=== PATIENT | male | born 1935 | race Caucasian/White ===

== ENCOUNTER → 2016-11-13 | Outpatient (CLI) | payer OTHER | END | disposition home or self-care (01) | LOC: RESP 11:34 | PROVIDERS: ATTEND Nurse Practitioner Family | DX: I49.9 Cardiac arrhythmia, unspecified (principal) ==

== ENCOUNTER 2016-12-19 08:48 | Outpatient (CLI) | payer OTHER ==
[2016-12-19] MEDS ORDERED: DEX 5% W/NACL 0.9% 1000ML 1,000 ML IVS ONE (08:53)
--- NOTE | 2016-12-19 09:37 | RAD ---
Procedure: XR ABDOMEN 1 VIEW (KUB) Exam Date: 12/19/2016 Ordering Provider: Lisa Logan Clinical Indication: Abdominal Pain Comparison: None Findings: Nonobstructive bowel gas pattern. Large stool burden in the right colon. There is no pneumoperitoneum. There are no suspicious calcifications. Pelvic phleboliths. There is no acute skeletal abnormality. Right hip arthroplasty. Degenerative changes in the left hip. Impression: 1. No acute findings. 2. Large stool burden in the right colon. Electronically signed by: Sushant Dinh MD 12/19/2016 9:37 AM CDT
[2016-12-19 10:39] VITALS: BP 135/79; TEMP 98; O2SAT 97
== END 2016-12-19 13:20 | disposition home or self-care (01) ==
LOC: AMB 08:48 → TXRM 08:48 → AMB 13:20 → EDSTATUS 16:31
PROVIDERS: ATTEND Nurse Practitioner Family
DX: E86.0 Dehydration (principal)
CPT/HCPCS: 36415; 74000; 81001; 83880; 85025; J7799

== ENCOUNTER → 2017-01-05 | Outpatient (CLI) | payer OTHER | END | disposition home or self-care (01) | LOC: GRH 12:58 | PROVIDERS: ATTEND Family Medicine | DX: I10 Essential (primary) hypertension (principal) ==

== ENCOUNTER 2017-01-11 13:02 | Inpatient (IN) | payer OTHER ==
[2017-01-11] MEDS ORDERED: KCL 20MEQ/0.45% NS 1,000 ML IVS PRN (13:14)
[2017-01-11] MEDS ORDERED: ONDANSETRON INJ 4 MG/2 ML VIAL IV PRN (13:14)
[2017-01-11] MEDS ORDERED: HYDROmorphone HCL INJ 2 MG/ML VIAL IV ONE (13:15)
[2017-01-11] MEDS ORDERED: PROMETHAZINE HCL INJ 25 MG/ML VIAL ONE (13:20)
[2017-01-11] MEDS ORDERED: SODIUM CHLORIDE 0.9% 50ML 50 ML ONE (13:21)
[2017-01-11] MEDS ORDERED: SODIUM CHLORIDE 0.9% 1000ML 1,000 ML ONE (13:53)
[2017-01-11] MEDS ORDERED: SODIUM CHLORIDE 0.9% 1000ML 1,000 ML IVS PRN (13:53)
[2017-01-11] MEDS ORDERED: MAGNESIUM HYDROXIDE 30 ML UD PO PRN (13:54)
[2017-01-11] MEDS ORDERED: ACETAMINOPHEN 325 MG TAB PO PRN (13:54)
[2017-01-11] MEDS ORDERED: SODIUM CHLORIDE 0.9% (FLUSH) 10 ML SYG IV PRN (13:54)
[2017-01-11] MEDS ORDERED: TEMAZEPAM 15 MG CAP PO PRN (13:54)
[2017-01-11] MEDS ORDERED: MORPHINE SULFATE INJ 10 MG/ML VIAL IV PRN (13:59)
[2017-01-11] MEDS ORDERED: HYDROmorphone HCL INJ 2 MG/ML VIAL IV PRN (14:04)
[2017-01-11] MEDS: PROMETHAZINE HCL INJ 12.5 MG in SODIUM CHLORIDE 0.9% 50ML 50 ML IVPB PRN (14:30)
[2017-01-11] MEDS: IV SET AND CAP CHANGE INJ INJ SCH (15:36)
--- NOTE | 2017-01-11 15:57 | HP ---
SUPERVISING PHYSICIAN: Aayush Valenzuela M.D. 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 He started having some bronchitis type symptoms in June of 2016 and in July of 2016. He had a CT scan which saw that he had positive findings for lymphoma after which he was sent to [facility]. He was diagnosed with non-Hodgkin's lymphoma and started on chemotherapy regimen , and was unable to complete the second round secondary to complications of the chemotherapy and the fact that his cancer was not responding to treatment as expected. He was placed on hospice care after further discussion with the family and physicians within the last week and at that point went home under hospice care, [facility]. I was contacted today by hospice nurse reporting that the patient was unable to hold any of his oral pain medicines in secondary to ongoing nausea and vomiting. It is requested that we place the patient in inpatient hospice in order to better control his symptoms and to provide better comfort care measures. The patient was directly admitted to inpatient hospice for care and comfort measures. PAST MEDICAL HISTORY: 1. Non-Hodgkin's lymphoma diagnosed within the last year. 2. Hypertension. 3. Benign prostatic hypertrophy. PAST SURGICAL HISTORY: 1. Lumbar surgeries. 2. Port-A-Cath placement on 02/26/16. 3. Hip replacement on the right. HOME MEDICATIONS: Please review the electronic medical records for an updated list of home medications. ALLERGIES: NO KNOWN DRUG ALLERGIES. FAMILY HISTORY: Unremarkable. 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 He is and lives in [place]. He commutes to several areas between [place] and [place]. He denies ever smoking. He does note that he drinks 1 glass of wine a week. Denies any illicit drug use. REVIEW OF SYSTEMS: CONSTITUTIONAL: Notes significant fatigue, tiredness and drowsiness with decreased appetite secondary to post chemotherapy, but denies any fever or chills. HEENT: Denies any blurred vision, double vision, sore throat, nasal congestion. RESPIRATORY: Notes that he has had some shortness of breath on and off with some sputum production. CARDIOVASCULAR: Reports that he does have a degree of congestive heart failure with bilateral lower extremity swelling as well as some now upper extremity swelling, but denies any chest pains, angina, palpitations or irregular heart rate. GASTROINTESTINAL: Denies any diarrhea currently but notes that he has had diarrhea in the past with episodes of diarrhea then constipation, and as per History of Present Illness, severe nausea with any oral intake. Unable to hold in oral medications. GENITOURINARY: Denies any urinary symptoms, hematuria, dysuria, but does have a past history of benign prostatic hypertrophy. NEUROLOGIC: Denies any syncopal episodes, neurological deficits, weaknesses. PHYSICAL EXAMINATION: VITAL SIGNS: Pending at time of admission. Admission weight 86.2 kg. GENERAL: The patient appears quite ill and frail, and somewhat dehydrated and in obvious pain at time of admission. HEENT: Tympanic membranes are clear bilaterally. Oropharynx is pink. Mucosal membranes are dry. There are no lesions. NECK: Supple, non-tender. Full range of motion without any jugular venous distention. CHEST: Lungs are clear to auscultation bilaterally without any rhonchi, wheezing or rales, just slightly diminished towards the bases. CARDIOVASCULAR: Regular rate and rhythm without appreciable murmurs, gallops, or rubs. EXTREMITIES: He has 1+ edema to both upper and lower extremities. Moves all extremities ad chelsie. There is no clubbing or cyanosis noted. NEUROLOGIC: He is alert and oriented times three with cranial nerves II-XII being grossly intact. Facial features are symmetrical. Extraocular movements are within normal limits. INTEGUMENT: Skin is warm and dry with good turgor. There is a Port-A-Cath noted in place on the chest wall right upper region with no obvious infection. There are no other lesions or rashes noted. LABORATORY: No laboratory specimens were collected. RADIOLOGY: No radiological studies were completed. ASSESSMENT: 1. Recent diagnosis of non-Hodgkin's lymphoma stage IV now on hospice care having failed to respond to chemotherapy. 2. Intractable pain secondary to number 1. 3. Nausea and vomiting preventing the patient from having decent oral intake and unable to take his oral medications for pain secondary to number 1. 4. Benign prostatic hypertrophy. 5. Hypertension. PLAN: The patient was directly admitted into Hospice Inpatient. Will start an IV on him in order to give him IV Phenergan to get his nausea under control and at that point utilize Dilaudid IV to get his pain under control after which we can switch to Morphine as appropriate. He will also have Zofran and Phenergan p.r.n. Again, he will be given care and comfort measures. The plan is to get the patient's nausea and pain under control, and hopefully be able to discharge tomorrow or the next back to hospice outpatient care with the plans to utilize a PAPER WRAPPING MACHINE OPERATOR type administration for both pain medicine and antiemetics. Until then, will continue to monitor the patient and treat appropriately. Once discharged, again, the patient will return back to hospice outpatient under [facility] with Dr. Benz. #[id number]
[2017-01-12] MEDS ORDERED: SODIUM CHLORIDE 0.9% 50ML 50 ML ONE ×3 (05:21→21:03)
[2017-01-12] MEDS ORDERED: PROMETHAZINE HCL INJ 25 MG/ML VIAL ONE ×2 (05:21→21:01)
[2017-01-12] MEDS: PROMETHAZINE HCL INJ 12.5 MG in SODIUM CHLORIDE 0.9% 50ML 50 ML IVPB PRN (05:27)
[2017-01-12] MEDS ORDERED: PROMETHAZINE HCL 25 MG TAB ONE (10:44)
[2017-01-12] MEDS ORDERED: PROMETHAZINE HCL 25 MG TAB PO PRN ×2 (10:45→10:59)
[2017-01-12] MEDS ORDERED: ONDANSETRON 4 MG TAB PO PRN (10:52)
[2017-01-12] MEDS ORDERED: HYDROmorphone HCL 2 MG TAB PO PRN (10:53)
[2017-01-12] MEDS ORDERED: PROMETHAZINE 25 MG/ML TOP PRN (10:55)
[2017-01-12] MEDS: FUROSEMIDE 40 MG TAB PO SCH (11:51)
[2017-01-12] MEDS ORDERED: fentaNYL PATCH 25 MCG/HR 1 EA PATCH TD SCH (16:30)
[2017-01-12] MEDS: DUTASTERIDE 0.5 MG CAP PO SCH (17:32)
[2017-01-12] MEDS: SODIUM CHLORIDE 0.9% (FLUSH) 10 ML SYG IV SCH (21:00)
[2017-01-12] MEDS: PROCHLORPERAZINE MALEATE 10 MG TAB PO SCH (21:48)
[2017-01-12] MEDS: TEMAZEPAM 15 MG CAP PO SCH (21:48)
[2017-01-13] MEDS: PROCHLORPERAZINE MALEATE 10 MG TAB PO SCH ×2 (09:17→20:55)
[2017-01-13] MEDS: DUTASTERIDE 0.5 MG CAP PO SCH (09:18)
[2017-01-13] MEDS: FUROSEMIDE 40 MG TAB PO SCH (09:18)
[2017-01-13] MEDS: ALUM & MAG HYDROX-SIMETHICONE 30 ML UD PO PRN (10:42)
[2017-01-13] MEDS: SODIUM CHLORIDE 0.9% (FLUSH) 10 ML SYG IV SCH ×2 (21:30→22:22)
[2017-01-14] MEDS: TEMAZEPAM 15 MG CAP PO SCH ×2 (08:01→21:39)
[2017-01-14] MEDS: DUTASTERIDE 0.5 MG CAP PO SCH (08:45)
[2017-01-14] MEDS: PROCHLORPERAZINE MALEATE 10 MG TAB PO SCH ×2 (08:46→21:38)
[2017-01-14] MEDS: FUROSEMIDE 40 MG TAB PO SCH (08:47)
[2017-01-14] MEDS: ALUM & MAG HYDROX-SIMETHICONE 30 ML UD PO PRN (16:13)
[2017-01-14] MEDS: SODIUM CHLORIDE 0.9% (FLUSH) 10 ML SYG IV SCH (21:38)
[2017-01-14] MEDS: IV SET AND CAP CHANGE INJ INJ SCH (21:39)
[2017-01-15] MEDS: FUROSEMIDE 40 MG TAB PO SCH (09:42)
[2017-01-15] MEDS: PROCHLORPERAZINE MALEATE 10 MG TAB PO SCH (09:42)
[2017-01-15] MEDS: DUTASTERIDE 0.5 MG CAP PO SCH (09:42)
[2017-01-15 12:37] VITALS: BP 122/83; TEMP 97.2
[2017-01-15] MEDS ORDERED: HEPARIN SODIUM 100 U/ML 5 ML SYG IV ONE ×2 (14:22)
[2017-01-15 15:00] VITALS: O2SAT 100
--- NOTE | 2017-01-17 14:04 | DS ---
SUPERVISING PHYSICIAN: Aayush Valenzuela MD DISCHARGE DIAGNOSIS: 1. Non-Hodgkin's lymphoma stage IV on hospice care having failed to respond to chemotherapy. 2. Intractable pain secondary to #1. 3. Nausea and vomiting preventing the initially patient from having good oral intake and inability to keep oral medications down for pain control secondary to #1 showing improvement and advanced to oral macular degenerations prior to discharge. 4. Benign prostatic hypertrophy. 5. Hypertension. 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 He started having some bronchitis type symptoms initially in June of 2016 and in July of [address] of the chest which showed positive findings for lymphoma after which he was sent to [facility]. He was then diagnosed with non-Hodgkin's lymphoma and started on chemotherapy regimen and was unable to complete the second round secondary to complications of the chemotherapy and the fact that the cancer was not responding to treatment as expected. He was then placed on hospice care after further discussion with the family and his physicians within the last week and at that point he went home under hospice care for care and comfort measures only. [facility] was contacted and arrangements were made through the hospital on date of admission by hospice nurse reporting that the patient was unable to hold any oral medication down for pain secondary to his ongoing nausea and vomiting. It was requested that the patient be placed in inpatient hospice in order to better control his symptoms and to provide better comfort care measures. The patient was directly admitted to inpatient hospice for care and comfort measures. LABORATORY: No laboratory studies or radiographic studies were obtained. HOSPITAL COURSE: Mr. Zamorano was admitted to inpatient hospice as noted above for pain control and control of his nausea. He was started on Dilaudid, morphine and Phenergan and Zofran as needed. He did have good control of his pain and nausea prior to discharge and was well enough to be discharged to continue with his outpatient plan of care with hospice care for care and comfort measures. PLAN: Mr. Zamorano was discharged on 01/15/17 to resume hospice care through [facility] with all medications to be provided by hospice. He is to be followed by Dr. Benz for hospice care. DISCHARGE MEDICATIONS: 1. Xanax 0.25 mg every 4 hours as needed, 2. Dilaudid 2 mg every 4 hours as needed. 3. Dulcolax 5 mg tablets daily. 4. Fentanyl patch 25 mcg every 72 hours. 5. Lasix 40 mg daily. 6. Duoneb treatments as needed. 7. Compazine 5 mg twice a day. 8. Promethazine tablets 25 mg every 4 hours as needed. 9. Restoril 30 mg at bedtime. No other medications were prescribed. DISCHARGE DIET: As tolerated. ACTIVITIES: As tolerated. CONDITION ON DISCHARGE: Poor.but stable. [facility][id number] [facility]
== END 2017-01-15 14:30 | disposition hospice, home (50) | DRG 948 ==
LOC: MS 13:02
PROVIDERS: ADMIT Family Medicine; ATTEND Nurse Practitioner Family
DX: G89.3 Neoplasm related pain (acute) (chronic) (principal); C85.90 Non-Hodgkin lymphoma, unspecified, unspecified site; R11.2 Nausea with vomiting, unspecified; I10 Essential (primary) hypertension; N40.0 Benign prostatic hyperplasia without lower urinary tract symptoms; Z96.641 Presence of right artificial hip joint; Z51.5 Encounter for palliative care; Z66 Do not resuscitate; Z79.891 Long term (current) use of opiate analgesic; Z79.899 Other long term (current) drug therapy